=== PATIENT | female | born 1985 | race Caucasian/White ===

== ENCOUNTER 2025-03-19 13:17 | Emergency (ER) | payer OTHER ==
[~2025-03-19] VITALS: Ht 180.3 cm; Wt 120.2 kg
[2025-03-19 13:50] VITALS: TEMP 97.3
[2025-03-19] MEDS: DIPHENHYDRAMINE HCL 25 MG CAP PO ONE (14:57)
[2025-03-19] MEDS: METHYLPREDNISOLONE SOD SUCC 125 MG/2ML VIAL IM STA (14:57)
[2025-03-19] MEDS: FAMOTIDINE 20 MG TAB PO ONE (14:57)
[2025-03-19] MEDS: TETANUS/DIPHTHERIA TOX ADULT 0.5 ML SYR IM ONE (16:03)
[2025-03-19 16:17] VITALS: PULSE 83; RESP 15; O2SAT 100
[2025-03-19] MEDS ORDERED: DOXYCYCLINE HY100 MG PO (16:38)
== END 2025-03-19 17:13 | disposition home or self-care (01) ==
LOC: EDBD 13:17 → ER 14:24 → MERGE 14:24 → ER 17:13
DX: S91.341D Puncture wound with foreign body, right foot, subsequent encounter (principal); W26.8XXD Contact with other sharp object(s), not elsewhere classified, subsequent encounter; Y93.01 Activity, walking, marching and hiking; I10 Essential (primary) hypertension; J45.909 Unspecified asthma, uncomplicated; E28.2 Polycystic ovarian syndrome; N80.9 Endometriosis, unspecified
CPT/HCPCS: 90471; 90714; 99284; J2919